=== PATIENT | female | born 1995 | race Caucasian/White ===

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

== ENCOUNTER 2017-02-18 10:14 | Emergency (ER) | payer OTHER ==
[2017-02-18 10:33] VITALS: BP 122/68; PULSE 70; TEMP 98.3; BMI 27.1
[2017-02-18 10:58] LABS: URINE APPEARANCE CLEAR; URINE BILIRUBIN NEGATIVE (NEGATIVE); URINE BLOOD 1+ (NEGATIVE); URINE COLOR YELLOW; URINE GLUCOSE (UA) NEGATIVE (NEGATIVE); URINE KETONE NEGATIVE (NEGATIVE); URINE NITRITE NEGATIVE (NEGATIVE); URINE PROTEIN NEGATIVE (NEGATIVE); URINE UROBILINOGEN NEGATIVE mg/dL (0.2-1.0)
[2017-02-18 10:59] LABS: HCG,QUALITATIVE URINE NEGATIVE; URINE LEUK ESTERASE 1+ (NEGATIVE)
[2017-02-18 11:11] LABS: EPI CELLS FEW /HPF (FEW); URINE BACTERIA RARE /hpf (NONE SEEN); URINE MUCUS RARE
--- NOTE | 2017-02-18 11:49 | PDOC ---
History of Present Illness - General Chief Complaint: Urinary Problem Stated Complaint: UTI Time Seen by Provider: 02/18/17 11:10 - History of Present Illness Initial Comments: 02/18/17 11:41 CHIEF COMPLAINT: urinary problem HISTORY OF PRESENT ILLNESS: 21 yo F with no significant PMH presents to [facility] with vaginal burning and itching x 1 week. Patient denies any back pain, abdominal pain, fever, chills, vomiting or diarrhea. She reports burning with urination and "some itching." She also reports white vaginal discharge that is unusual from her baseline. PAST MEDICAL HISTORY: Denies past medical history FAMILY HISTORY: Denies SOCIAL HISTORY: Denies tobacco, alcohol, illicit drug use. SURGICAL HISTORY: Denies ALLERGIES: No known drug allergies REVIEW OF SYSTEMS General/Constitutional: Denies fever or chills. HEENT: Denies change in vision. Denies ear pain or discharge. Denies sore throat. Cardiovascular: Denies chest pain or shortness of breath. Respiratory: Denies cough, wheezing, or hemoptysis. Gastrointestinal: Denies nausea, vomiting, diarrheag. Genitourinary: Vaginal burning, increased urination but only "a little bit comes out," and white non odorous discharge. Musculoskeletal: Denies joint or muscle swelling or pain. Denies neck or back pain. Skin and breasts: Denies rash or easy bruising. PHYSICAL EXAM General Appearance: Well-appearing, appropriately dressed. No apparent distress. HEENT: EOMI, PERRLA. No conjunctival pallor. No photophobia, scleral icterus. Respiratory/Chest: Lungs CTAB. Cardiovascular: RRR. S1, S2. Gastrointestinal/Abdominal: Normal bowel sounds. Abdomen soft, non-distended. No tenderness or rebound tenderness. No organomegaly, pulsatile mass, guarding , hernia, hepatomegaly, splenomegaly. Musculoskeletal/Extremities: Normal inspection. FROM of all extremities, normal capillary refill. Pelvis Stable. No CVA tenderness. No tenderness to extremities, pedal edema, swelling, erythema or deformity. Integumentary: Appropriate color, dry, warm. 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 Fully oriented, alert. Appropriate mood/affect. Motor strength 5/5. No appreciable EOM palsy, facial droop or sensory deficit. Past History - Past Medical History Allergies/Adverse Reactions: Allergies Allergy/AdvReac Type Severity Reaction Status Date / Time No Known Allergies Allergy Verified 02/18/17 10:30 Home Medications: Ambulatory Orders Levothyroxine [Synthroid -] 50 mcg PO DAILY 07/25/15 Nitrofurantoin Monohyd/M-Cryst [Macrobid -] 100 mg PO BID #14 capsule 02/18/17 Anemia: No Asthma: No Cancer: No Cardiac Disorders: No CVA: No COPD: No DVT: No Dementia: No Diabetes: No Dialysis: No GI Disorders: No Disorders: No HTN: No Hypercholesterolemia: No Kidney Stones: No Liver Disease: No Psychiatric Problems: Yes (ANXIETY.) Seizures: No Thyroid Disease: Yes (HYPO.) Lung CA: No - Surgical History Abdominal Surgery: No Appendectomy: No Cardiac Surgery: No Cholecystectomy: No Gastric Stapling: No GI Surgery: No Lung Surgery: No Neurologic Surgery: No - Reproductive History Cervical CA: No Dysfunctional Uterine Bleeding: No Ectopic : No Endometrial CA: No Polycystic Ovaries: No Tubal Ligation: No - Immunization History Immunization Up to Date: Yes - Suicide/Smoking/Psychosocial Hx Smoking Status: No Smoking History: Never smoked Have you smoked in the past 12 months: No Number of Cigarettes Smoked Daily: 0 Cigars Per Day: 0 Hx Alcohol Use: No Drug/Substance Use Hx: No Substance Use Type: None *Physical Exam - Vital Signs Last Vital Signs Temp Pulse Resp BP Pulse Ox 98.3 F 70 19 122/68 98 02/18/17 10:30 02/18/17 10:30 02/18/17 10:30 02/18/17 10:30 02/18/17 10:30 ED Treatment Course - ADDITIONAL ORDERS Additional order review: Laboratory Results 02/18/17 10:40 Urine Color Yellow Urine Appearance Clear Urine pH 5.0 Ur Specific [place] 1.027 Urine Protein Negative Urine Glucose (UA) Negative Urine Ketones Negative Urine Blood 1+ H Urine Nitrite Negative Urine Bilirubin Negative Urine Urobilinogen Negative Ur Leukocyte Esterase 1+ H Urine WBC (Auto) 7 Urine RBC (Auto) 8 Ur Epithelial Cells Few Urine Bacteria Rare Urine Mucus Rare Urine HCG, Qual Negative Medical Decision Making - Medical Decision Making 02/18/17 11:49 21 yo F with no significant PMH presents to [facility] with vaginal burning and itching x 1 week. -UA, UCx UA negative for nitrites, WBC 7. Will treat with fluconazole and macrobid. Advised patient to take medication as prescribed and follow up with PMD if symptoms persist. Advised patient of signs and symptoms for return to ED. Patient verbalized understanding and agrees to plan. *DC/Admit/Observation/Transfer Diagnosis at time of Disposition: Yeast infection UTI (urinary tract infection) Qualifiers: Urinary tract infection type: site unspecified Hematuria presence: without hematuria Qualified Code(s): N39.0 - Urinary tract infection, site not specified - Discharge Dispostion Disposition: HOME Condition at time of disposition: Stable Admit: No - Prescriptions Prescriptions: Nitrofurantoin Monohyd/M-Cryst [Macrobid -] 100 mg PO BID #14 capsule - Referrals Referrals: Lissette Escalante MD [Staff Physician] - - Patient Instructions Printed Discharge Instructions: DI for Urinary Tract Infection (UTI), DI for Vaginal Yeast Infection Additional Instructions: Please take medications as prescribed and complete the entire course of antibiotics, even if your symptoms have improved. If you develop any fever, chills, back pain, nausea, vomiting, diarrhea, or any new or worsening symptoms , please return to the ER immediately. - Post Discharge Activity
[2017-02-18] MEDS ORDERED: FLUCONAZOLE 150 MG TABLET PO ONE (11:51)
[2017-02-18] MEDS ORDERED: FLUCONAZOLE 100 MG TABLET (UD) ONE (11:56)
== END 2017-02-18 12:01 | disposition home or self-care (01) ==
LOC: JERFT 10:14
DX: B37.49 Other urogenital candidiasis (principal); N39.0 Urinary tract infection, site not specified
CPT/HCPCS: 81003; 81015; 84703; 87086; 99281-25

== ENCOUNTER 2017-03-21 07:45 | Emergency (ER) | payer OTHER ==
[2017-03-21 07:51] VITALS: BP 112/81; PULSE 90; TEMP 98.5; BMI 26.7
--- NOTE | 2017-03-21 08:14 | PDOC ---
History of Present Illness - General Chief Complaint: Sore Throat Stated Complaint: SORE THROAT/EAR PAIN Time Seen by Provider: 03/21/17 08:11 History Source: Patient Exam Limitations: No Limitations - History of Present Illness Initial Comments: CHIEF COMPLAINT: 21 y/o female c/o congestion, sore throat and earache this morning. HISTORY OF PRESENT ILLNESS: The patient denies fever, chills, n/v/d, runny nose , body aches, CAST, CP, SOB and all other symptoms. SHe is most concerned with being able to visit a new family baby today. Past History - Past Medical History Allergies/Adverse Reactions: Allergies Allergy/AdvReac Type Severity Reaction Status Date / Time No Known Allergies Allergy Verified 03/21/17 07:51 Home Medications: Ambulatory Orders Levothyroxine [Synthroid -] 50 mcg PO DAILY 07/25/15 Nitrofurantoin Monohyd/M-Cryst [Macrobid -] 100 mg PO BID #14 capsule 02/18/17 Anemia: No Asthma: No Cancer: No Cardiac Disorders: No CVA: No COPD: No DVT: No Dementia: No Diabetes: No Dialysis: No GI Disorders: No Disorders: No HTN: No Hypercholesterolemia: No Kidney Stones: No Liver Disease: No Psychiatric Problems: Yes (ANXIETY.) Seizures: No Thyroid Disease: Yes (HYPO.) Lung CA: No - Surgical History Abdominal Surgery: No Appendectomy: No Cardiac Surgery: No Cholecystectomy: No Gastric Stapling: No GI Surgery: No Lung Surgery: No Neurologic Surgery: No - Reproductive History Cervical CA: No Dysfunctional Uterine Bleeding: No Ectopic : No Endometrial CA: No Polycystic Ovaries: No Tubal Ligation: No - Immunization History Immunization Up to Date: Yes - Suicide/Smoking/Psychosocial Hx Smoking Status: No Smoking History: Never smoked Have you smoked in the past 12 months: No Number of Cigarettes Smoked Daily: 0 Cigars Per Day: 0 Hx Alcohol Use: No Drug/Substance Use Hx: No Substance Use Type: None Review of Systems - Review of Systems Able to Perform ROS?: Yes Constitutional: No: Chills, Diaphoresis, Fever HEENTM: Yes: Ear Pain (left), Nose Congestion, Throat Pain. No: Ear Discharge, Nose Pain, Throat Swelling, Difficulty Swallowing Respiratory: Yes: Cough (dry). No: Shortness of Breath, Wheezing, Productive cough, Hemoptysis Cardiac (ROS): No: Symptoms Reported ABD/GI: No: Symptoms Reported : No: Symptoms Reported Musculoskeletal: No: Symptoms Reported Neurological: No: Symptoms reported *Physical Exam - Vital Signs Last Vital Signs Temp Pulse Resp BP Pulse Ox 98.5 F 90 16 112/81 97 03/21/17 07:49 03/21/17 07:49 03/21/17 07:49 03/21/17 07:49 03/21/17 07:49 - Physical Exam Comments: well appearing female in NAD or obvious discomfort General Appearance: Yes: Nourished, Appropriately Dressed. No: Apparent Distress HEENT: positive: CAMILO, Normal Voice, TMs Normal, Pharynx Normal, Pharyngeal Erythema, Nasal Congestion, Other (dry cough). negative: Tonsillar Exudate, Tonsillar Erythema, Rhinorrhea Neck: negative: Lymphadenopathy (R), Lymphadenopathy (L) Respiratory/Chest: positive: Lungs Clear. negative: Rhonchi, Wheezing Cardiovascular: positive: Regular Rhythm, Regular Rate Medical Decision Making - Medical Decision Making A/P: 21 y/o female with common cold/pharyngitis. Provided supportive care instructions. Suggested she not visit a baby until she is 100% and return to the ER with any worsening or concerning symptoms. The patient verbalizes understanding of all instructions, has no further questions and is awaiting discharge. *DC/Admit/Observation/Transfer Diagnosis at time of Disposition: Common cold Pharyngitis Qualifiers: Pharyngitis/tonsillitis etiology: unspecified etiology Qualified Code(s): J02.9 - Acute pharyngitis, unspecified - Discharge Dispostion Disposition: HOME Condition at time of disposition: Good - Referrals - Patient Instructions Printed Discharge Instructions: DI for Viral Pharyngitis, DI for Common Cold Additional Instructions: Discharge Instructions: -Take tylenol or motrin for pain -Gargle with warm salt water -Eat cold/soft foods to help with sore throat -Take robitussin for cough -Drink plenty of fluids -Get lots of rest -Return to the ER with any worsening or concerning symptoms - Post Discharge Activity Forms/Work/School Notes: Back to School
== END 2017-03-21 08:44 | disposition home or self-care (01) ==
LOC: JERFT 07:45
DX: J02.9 Acute pharyngitis, unspecified (principal); J06.9 Acute upper respiratory infection, unspecified
CPT/HCPCS: 99281-25

== ENCOUNTER 2017-03-25 22:53 | Emergency (ER) | payer OTHER ==
[2017-03-25 23:56] VITALS: BP 148/83; PULSE 90; TEMP 98; BMI 26.7
--- NOTE | 2017-03-26 01:18 | PDOC ---
History of Present Illness - General Chief Complaint: Cold Symptoms Stated Complaint: COUGHING Time Seen by Provider: 03/26/17 01:08 History Source: Patient Exam Limitations: No Limitations - History of Present Illness Initial Comments: 03/26/17 01:19 21-year-old female with a history of hypothyroidism presents to the emergency department complaining of worsening sore throat which is been going on for approximately one week with subjective fever and chills but denies nausea/ vomiting. Patient also admits to nasal congestion, rhinorrhea but denies earaches, neck pain/stiffness, back pains, chest pain, shortness of breath, abdominal discomfort. Timing/Duration: reports: week Past History - Past Medical History Allergies/Adverse Reactions: Allergies Allergy/AdvReac Type Severity Reaction Status Date / Time No Known Allergies Allergy Verified 03/25/17 23:56 Home Medications: Ambulatory Orders Levothyroxine [Synthroid -] 50 mcg PO DAILY 07/25/15 Anemia: No Asthma: No Cancer: No Cardiac Disorders: No CVA: No COPD: No DVT: No Dementia: No Diabetes: No Dialysis: No GI Disorders: No Disorders: No HTN: No Hypercholesterolemia: No Kidney Stones: No Liver Disease: No Psychiatric Problems: Yes (ANXIETY.) Seizures: No Thyroid Disease: Yes (HYPO.) Lung CA: No - Surgical History Abdominal Surgery: No Appendectomy: No Cardiac Surgery: No Cholecystectomy: No Gastric Stapling: No GI Surgery: No Lung Surgery: No Neurologic Surgery: No - Reproductive History Cervical CA: No Dysfunctional Uterine Bleeding: No Ectopic : No Endometrial CA: No Polycystic Ovaries: No Tubal Ligation: No - Immunization History Immunization Up to Date: Yes - Suicide/Smoking/Psychosocial Hx Smoking Status: No Smoking History: Never smoked Have you smoked in the past 12 months: No Number of Cigarettes Smoked Daily: 0 Cigars Per Day: 0 Information on smoking cessation initiated: No Hx Alcohol Use: No Drug/Substance Use Hx: No Substance Use Type: None Review of Systems - Review of Systems Able to Perform ROS?: Yes Comments:: 03/26/17 01:19 CONSTITUTIONAL: Absent: fever, chills, diaphoresis, generalized weakness, malaise, loss of appetite HEENT: +rhinorrhea, nasal congestion, throat pain Absent: throat swelling, difficulty swallowing, mouth swelling, ear pain, eye pain, visual Changes CARDIOVASCULAR: Absent: chest pain, loss of consciousness, palpitations, irregular heart rate, peripheral edema RESPIRATORY: Absent: cough, shortness of breath, dyspnea with exertion, orthopnea, wheezing, stridor, hemoptysis GASTROINTESTINAL: Absent: abdominal pain, abdominal distension, nausea, vomiting, diarrhea, constipation, melena, hematochezia GENITOURINARY: Absent: dysuria, frequency, urgency, hesitancy, hematuria, flank pain, genital pain MUSCULOSKELETAL: Absent: myalgia, arthralgia, joint swelling SKIN: Absent: rash, itching, pallor Is the patient limited Maltese proficient: No *Physical Exam - Vital Signs Last Vital Signs Temp Pulse Resp BP Pulse Ox 98.0 F 90 18 148/83 97 03/25/17 23:53 03/25/17 23:53 03/25/17 23:53 03/25/17 23:53 03/25/17 23:53 - Physical Exam Comments: 03/26/17 01:20 GENERAL: Well developed, well nourished. Awake and alert. No acute distress. HEENT: Posterior pharynx +erythema/+exudates Normocephalic, atraumatic. PERRLA, EOMI. No conjunctival pallor. Sclera are non- icteric. Moist mucous membranes. Oropharynx is clear. NECK: Supple. Full ROM. No JVD. Carotid pulses 2+ and symmetric, without bruits. No thyromegaly. No lymphadenopathy. CARDIOVASCULAR: Regular rate and rhythm. No murmurs, rubs, or gallops. Distal pulses are 2+ and symmetric. PULMONARY: No evidence of respiratory distress. Lungs clear to auscultation bilaterally. No wheezing, rales or rhonchi. ABDOMINAL: Soft. Non-tender. Non-distended. No rebound or guarding. No organomegaly. Normoactive bowel sounds. MUSCULOSKELETAL Normal range of motion at all joints. No bony deformities or tenderness. No CVA tenderness. EXTREMITIES: No cyanosis. No clubbing. No edema. No calf tenderness. SKIN: Warm and dry. Normal capillary refill. No rashes. No jaundice. *DC/Admit/Observation/Transfer Diagnosis at time of Disposition: Pharyngitis Qualifiers: Pharyngitis/tonsillitis etiology: unspecified etiology Qualified Code(s): J02.9 - Acute pharyngitis, unspecified - Discharge Dispostion Disposition: HOME Condition at time of disposition: Stable Admit: No - Referrals Referrals: Stiven Garcia MD [Staff Physician] - - Patient Instructions Printed Discharge Instructions: Viral Pharyngitis Additional Instructions: Increase fluids Take Tylenol alternating with Motrin every 6 hours as needed for pain Follow-up with the ENT physician Return back to the emergency department for severe/persistent or worsening symptoms - Post Discharge Activity
[2017-03-26] MEDS ORDERED: AMOXICILLIN 500 MG CAPSULE (FP) PO ONE (01:21)
[2017-03-26] MEDS ORDERED: AMOXICILLIN 250 MG CAPSULE ONE (01:25)
== END 2017-03-26 01:28 | disposition home or self-care (01) ==
LOC: JERFT 22:53
DX: J02.9 Acute pharyngitis, unspecified (principal); E03.9 Hypothyroidism, unspecified; F41.9 Anxiety disorder, unspecified
CPT/HCPCS: 99281-25

== ENCOUNTER 2017-08-23 18:28 | Emergency (ER) | payer OTHER ==
--- NOTE | 2017-08-23 18:55 | PDOC ---
Rapid Medical Evaluation Time Seen by Provider: 08/23/17 18:53 Medical Evaluation: Allergies Allergy/AdvReac Type Severity Reaction Status Date / Time No Known Allergies Allergy Verified 03/25/17 23:56 08/23/17 18:53 I have performed a brief in-person evaluation of this patient. The patient presents with a chief complaint of:B/l ear pain, L>R. No pmhx Pertinent physical exam findings:defer to FT provider I have ordered the following:nothing The patient will proceed to the ED for further evaluation. Discharge Disposition - Diagnosis Ear pain Qualifiers: Laterality: bilateral Qualified Code(s): H92.03 - Otalgia, bilateral - Referrals - Patient Instructions - Post Discharge Activity
[2017-08-23 18:56] VITALS: BP 133/68; PULSE 83; TEMP 98.6; BMI 27.3
--- NOTE | 2017-08-23 19:37 | PDOC ---
History of Present Illness - General Chief Complaint: Ear Problem Stated Complaint: EAR PAIN Time Seen by Provider: 08/23/17 18:53 History Source: Patient Exam Limitations: No Limitations - History of Present Illness Initial Comments: 08/23/17 19:32 c/o woke up with fullness to both ear and sinus congestion. Pt was swimming often in the pool last week. no fever no sore throat Timing/Duration: 24 hours Severity: mild Past History - Past Medical History Allergies/Adverse Reactions: Allergies Allergy/AdvReac Type Severity Reaction Status Date / Time No Known Allergies Allergy Verified 08/23/17 18:53 Home Medications: Ambulatory Orders Levothyroxine [Synthroid -] 75 mcg PO DAILY 07/25/15 Norgestimate-Ethinyl Estradiol [Estarylla 0.25-0.035 mg Tablet] 1 each PO DAILY 08/23/17 Prednisolone 1% Ophthalmic [Pred Forte 1% -] 2 drop BID #1 bottle 08/23/17 Anemia: No Asthma: No Cancer: No Cardiac Disorders: No CVA: No COPD: No DVT: No Dementia: No Diabetes: No Dialysis: No GI Disorders: No Disorders: No HTN: No Hypercholesterolemia: No Kidney Stones: No Liver Disease: No Psychiatric Problems: Yes (ANXIETY.) Seizures: No Thyroid Disease: Yes (HYPO.) Lung CA: No - Surgical History Abdominal Surgery: No Appendectomy: No Cardiac Surgery: No Cholecystectomy: No Gastric Stapling: No GI Surgery: No Lung Surgery: No Neurologic Surgery: No - Reproductive History Cervical CA: No Dysfunctional Uterine Bleeding: No Ectopic : No Endometrial CA: No Polycystic Ovaries: No Tubal Ligation: No - Immunization History Immunization Up to Date: Yes - Suicide/Smoking/Psychosocial Hx Smoking Status: No Smoking History: Never smoked Have you smoked in the past 12 months: No Number of Cigarettes Smoked Daily: 0 Cigars Per Day: 0 Hx Alcohol Use: No Drug/Substance Use Hx: No Substance Use Type: None Review of Systems - Review of Systems Able to Perform ROS?: Yes Is the patient limited [place] proficient: No Constitutional: No: Symptoms Reported HEENTM: Yes: Symptoms Reported *Physical Exam - Vital Signs Last Vital Signs Temp Pulse Resp BP Pulse Ox 98.6 F 83 19 133/68 99 08/23/17 18:54 08/23/17 18:54 08/23/17 18:54 08/23/17 18:54 08/23/17 18:54 - Physical Exam General Appearance: Yes: Nourished, Appropriately Dressed HEENT: positive: EOMI, CAMILO, Nasal Congestion, TM Erythema (left ear with narrowing of canal ), Other (right ear clear ) Neck: positive: Supple Respiratory/Chest: positive: Lungs Clear, Normal Breath Sounds Cardiovascular: positive: Regular Rhythm, Regular Rate Musculoskeletal: positive: Normal Inspection Extremity: positive: Normal Capillary Refill, Normal Inspection, Normal Range of Motion Integumentary: positive: Normal Color, Dry, Warm Neurologic: positive: medical technologist clinical II-XII NML intact, Fully Oriented, Alert, Normal Mood/ Affect, Normal Response, Motor Strength 06/15 Medical Decision Making - Medical Decision Making 08/23/17 19:33 cc: ear fullness sinus congestion afebrile non toxic well appearing *DC/Admit/Observation/Transfer Diagnosis at time of Disposition: Ear pain Qualifiers: Laterality: bilateral Qualified Code(s): H92.03 - Otalgia, bilateral - Discharge Dispostion Disposition: HOME Condition at time of disposition: Good - Prescriptions Prescriptions: Prednisolone 1% Ophthalmic [Pred Forte 1% -] 2 drop BID #1 bottle - Referrals Referrals: Stiven Garcia MD [Staff Physician] - - Patient Instructions Additional Instructions: follow with ENT for any worsening symptoms use the drops as prescribed you can also take over the counter Sudafed for congestion and ear fullness as directed on the package - Post Discharge Activity
== END 2017-08-23 19:41 | disposition home or self-care (01) ==
LOC: JERFT 18:28
DX: H92.03 Otalgia, bilateral (principal); F41.9 Anxiety disorder, unspecified; E03.9 Hypothyroidism, unspecified
CPT/HCPCS: 99281-25

== ENCOUNTER 2017-09-29 23:18 | Emergency (ER) | payer OTHER ==
[2017-09-29 23:25] VITALS: BP 114/68; PULSE 82; TEMP 98.2; BMI 27.9
--- NOTE | 2017-09-30 00:10 | PDOC ---
History of Present Illness - General Chief Complaint: Redness To Affected Area Stated Complaint: SWELLING TO EAR History Source: Patient Exam Limitations: No Limitations - History of Present Illness Initial Comments: 09/30/17 00:03 Patient is a 21 year old female with h/o hypothyroidism on Synthroid c/o swelling to her right tragus after applying some saline water. States she had a piercing to the tragus 2 weeks ago and was doing fine until she used a Dr. Martinez saline solution on it today and it became swollen. States no pain, discharge, redness. She put ice on the area and now swelling coming down. PMD: does not remember name PMHX: neg PSOCHX: neg etoh, durg, cig ALL: NKDA GENERAL/CONSTITUTIONAL: [No fever or chills. No weakness. No weight change.] HEAD, EYES, EARS, NOSE AND THROAT: [No change in vision. No ear pain or discharge. No sore throat.] CARDIOVASCULAR: [No chest pain or shortness of breath.] RESPIRATORY: [No cough, wheezing, or hemoptysis.] GASTROINTESTINAL: [No nausea, vomiting, diarrhea or constipation. No rectal bleeding.] GENITOURINARY: [No dysuria, frequency, or change in urination.] MUSCULOSKELETAL: [No joint or muscle swelling or pain. No neck or back pain.] SKIN AND BREASTS: [No rash or easy bruising.] NEUROLOGIC: [No headache, vertigo, loss of consciousness, or loss of sensation.] PSYCHIATRIC: [No depression or anxiety.] ENDOCRINE: [No increased thirst. No abnormal weight change.] HEMATOLOGIC/LYMPHATIC: [No anemia, easy bleeding, or history of blood clots.] ALLERGIC/IMMUNOLOGIC: [No hives or skin allergy. No latex allergy.] GENERAL: [The patient is awake, alert, and fully oriented, in no acute distress. ] HEAD: [Normal with no signs of trauma.] EYES: [Pupils equal, round and reactive to light, extraocular movements intact, sclera anicteric, conjunctiva clear.] ENT: [Ears normal, nares patent, oropharynx clear without exudates. Moist mucous membranes.] NECK: [Normal range of motion, supple without lymphadenopathy, JVD, or masses.] LUNGS: [Breath sounds equal, clear to auscultation bilaterally. No wheezes, and no crackles.] HEART: [Regular rate and rhythm, normal S1 and S2 without murmur, rub.] ABDOMEN: [Soft, nontender, normoactive bowel sounds. No guarding, no rebound. No masses.] EXTREMITIES: [Normal range of motion, no edema. No clubbing or cyanosis. No cords, erythema, or tenderness.] NEUROLOGICAL: [Cranial nerves II through XII grossly intact. Normal speech, normal gait.] PSYCH: [Normal mood, normal affect.] SKIN: [Warm, Dry, normal turgor, no rashes or lesions noted, right tragus with earring, no erythema, nontender, no discharge, mild swelling. ] Past History - Past Medical History Allergies/Adverse Reactions: Allergies Allergy/AdvReac Type Severity Reaction Status Date / Time No Known Allergies Allergy Verified 09/29/17 23:25 Home Medications: Ambulatory Orders Levothyroxine [Synthroid -] 75 mcg PO DAILY 07/25/15 Norgestimate-Ethinyl Estradiol [Estarylla 0.25-0.035 mg Tablet] 1 each PO DAILY 08/23/17 Prednisolone 1% Ophthalmic [Pred Forte 1% -] 2 drop BID #1 bottle 08/23/17 Anemia: No Asthma: No Cancer: No Cardiac Disorders: No CVA: No COPD: No DVT: No Dementia: No Diabetes: No Dialysis: No GI Disorders: No Disorders: No HTN: No Hypercholesterolemia: No Kidney Stones: No Liver Disease: No Psychiatric Problems: Yes (ANXIETY.) Seizures: No Thyroid Disease: Yes (HYPO.) Lung CA: No - Surgical History Abdominal Surgery: No Appendectomy: No Cardiac Surgery: No Cholecystectomy: No Gastric Stapling: No GI Surgery: No Lung Surgery: No Neurologic Surgery: No - Reproductive History Cervical CA: No Dysfunctional Uterine Bleeding: No Ectopic : No Endometrial CA: No Polycystic Ovaries: No Tubal Ligation: No - Immunization History Immunization Up to Date: Yes - Suicide/Smoking/Psychosocial Hx Smoking Status: No Smoking History: Never smoked Have you smoked in the past 12 months: No Number of Cigarettes Smoked Daily: 0 Cigars Per Day: 0 Information on smoking cessation initiated: No Hx Alcohol Use: No Drug/Substance Use Hx: No Substance Use Type: None *Physical Exam - Vital Signs Last Vital Signs Temp Pulse Resp BP Pulse Ox 98.2 F 82 116 H 114/68 100 09/29/17 23:23 08/19/18 23:23 09/29/17 23:23 09/29/17 23:23 09/29/17 23:23 Medical Decision Making - Medical Decision Making 09/30/17 00:03 Patient is a 21 year old female with h/o hypothyroidism on Synthroid c/o swelling to her right tragus after applying some saline water. discharge with inst to watch for infection. I discussed the physical exam findings, ancillary test results and final diagnoses with the patient. I answered all of the patient's questions. The patient was satisfied with the care received and felt comfortable with the discharge plan and treatment plan. The Patient agrees to follow up with the primary care physician within 24-72 hours. *DC/Admit/Observation/Transfer Diagnosis at time of Disposition: Swelling - Discharge Dispostion Disposition: HOME Condition at time of disposition: Stable - Referrals - Patient Instructions Printed Discharge Instructions: DI for Contusion Additional Instructions: Your Discharge Instructions: You must call primary care physician within 24 hours to arrange follow-up. Return to the Emergency Department with any new, persistent or worsening symptoms, for fever, chills, SOB, dizziness or any other concerning changes that may occur. if the swelling continues, and associate and discharge you must rem the earing immediately. - Post Discharge Activity
--- NOTE | 2017-09-30 00:38 | PDOC ---
*Physical Exam - Vital Signs Last Vital Signs Temp Pulse Resp BP Pulse Ox 98.2 F 82 116 H 114/68 100 09/29/17 23:23 09/29/17 23:23 09/29/17 23:23 09/29/17 23:23 09/29/17 23:23 Medical Decision Making - Medical Decision Making 09/30/17 00:38 Case discussed with JALEN Shore. Plan as per JALEN *DC/Admit/Observation/Transfer Diagnosis at time of Disposition: Swelling - Discharge Dispostion Disposition: HOME - Referrals - Patient Instructions Printed Discharge Instructions: DI for Contusion Additional Instructions: Your Discharge Instructions: You must call primary care physician within 24 hours to arrange follow-up. Return to the Emergency Department with any new, persistent or worsening symptoms, for fever, chills, SOB, dizziness or any other concerning changes that may occur. if the swelling continues, and associate and discharge you must rem the earing immediately. - Post Discharge Activity
== END 2017-09-30 00:39 | disposition home or self-care (01) ==
LOC: JER 23:18
DX: H93.8X1 Other specified disorders of right ear (principal); E03.9 Hypothyroidism, unspecified; F41.9 Anxiety disorder, unspecified
CPT/HCPCS: 99281-25

== ENCOUNTER 2018-11-07 04:59 | Emergency (ER) | payer OTHER ==
[2018-11-07 05:10] VITALS: BP 110/65; PULSE 86; TEMP 98.3; BMI 26.7
[2018-11-07] MEDS ORDERED: FLUORESCEIN NA 1 EA STRIP OS ONE (05:33)
[2018-11-07] MEDS ORDERED: TETRACAINE 0.5% OPHTH SOLN 2 ML BOTTLE OS ONE (05:33)
[2018-11-07] MEDS ORDERED: TETRACAINE 0.5% OPHTH SOLN 2 ML BOTTLE ONE (05:36)
[2018-11-07] MEDS ORDERED: FLUORESCEIN NA 1 EA STRIP ONE (05:36)
--- NOTE | 2018-11-07 05:50 | PDOC ---
History of Present Illness - General Chief Complaint: Eye Problem Stated Complaint: LEFT EYE SWELLING Time Seen by Provider: 11/07/18 05:03 History Source: Patient Exam Limitations: No Limitations - History of Present Illness Initial Comments: 11/07/18 05:48 This is a 23 year old female with PMH significant for hypothyroidism. She presented to the ER with complaints of left eye swelling (no swelling noted on examination) and irritation for the past 1 hour. She went to sleep around 1AM and woke up at 4AM to use the bathroom. She noticed her eye was swollen, and subsequently developed irritation, lacrimation. She states that she had eyelash extensions placed on the 08 of October. She has never had eyelash extensions before. She has myopia in her left eye, and has prescription glasses as well as contact lenses, which she uses occasionally. She is not currently wearing contact lenses. She denies any visual changes, fever, chills, headaches, nausea , or vomiting. She also denies any recent illnesses, sick contacts, recent travel, or changes in her medication. Past History - Travel Traveled outside of the country in the last 30 days: Yes Close contact w/someone who was outside of country & ill: No - Past Medical History Allergies/Adverse Reactions: Allergies Allergy/AdvReac Type Severity Reaction Status Date / Time No Known Allergies Allergy Verified 11/07/18 05:08 Home Medications: Ambulatory Orders Levothyroxine [Synthroid -] 75 mcg PO DAILY 07/25/15 Norgestimate-Ethinyl Estradiol [Estarylla 0.25-0.035 mg Tablet] 1 each PO DAILY 08/23/17 Prednisolone 1% Ophthalmic [Pred Forte 1% -] 2 drop BID #1 bottle 08/23/17 Anemia: No Asthma: No Cancer: No Cardiac Disorders: No CVA: No COPD: No DVT: No Dementia: No Diabetes: No Dialysis: No GI Disorders: No Disorders: No HTN: No Hypercholesterolemia: No Kidney Stones: No Liver Disease: No Psychiatric Problems: Yes (ANXIETY.) Seizures: No Thyroid Disease: Yes (HYPO.) Lung CA: No - Surgical History Abdominal Surgery: No Appendectomy: No Cardiac Surgery: No Cholecystectomy: No Gastric Stapling: No GI Surgery: No Lung Surgery: No Neurologic Surgery: No - Reproductive History Cervical CA: No Dysfunctional Uterine Bleeding: No Ectopic : No Endometrial CA: No Polycystic Ovaries: No Tubal Ligation: No - Immunization History Immunization Up to Date: Yes - Psycho Social/Smoking Cessation Hx Smoking Status: No Smoking History: Never smoked Have you smoked in the past 12 months: No Number of Cigarettes Smoked Daily: 0 Cigars Per Day: 0 Information on smoking cessation initiated: No Hx Alcohol Use: No Drug/Substance Use Hx: No Substance Use Type: None Review of Systems - Review of Systems Constitutional: No: Symptoms Reported, See HPI, Chills, Diaphoresis, Fever, Loss of Appetite, Malaise, Night Sweats, Weakness, Weight Stable, Unintentional Wgt. Loss, Unexplained wgt Loss, Other HEENTM: Yes: Tearing. No: Symptoms Reported, See HPI, Eye Pain, Blurred Vision , Recent change in vision, Double Vision, Cataracts, Ear Pain, Ocular Prothesis , Ear Discharge, Nose Pain, Nose Congestion, Tinnitus, Nose Bleeding, Hearing Loss, Throat Pain, Throat Swelling, Mouth Pain, Dental Problems, Difficulty Swallowing, Mouth Swelling, Other Respiratory: No: Symptoms reported, See HPI, Cough, Orthopnea, Shortness of Breath, SOB with Exertion, SOB at Rest, Stridor, Wheezing, Productive cough, Hemoptysis, Other Cardiac (ROS): No: Symptoms Reported, See HPI, Chest Pain, Edema, Irregular Heart Rate, Lightheadedness, Palpitations, Syncope, Chest Tightness, Other ABD/GI: No: Symptoms Reported, See HPI, Abdominal Distended, Abd. Pain w/ defecation, Blood Streaked Bowels, Constipated, Diarrhea, Difficulty Swallowing , Nausea, Poor Appetite, Poor Fluid Intake, Rectal Bleeding, Vomiting, Indigestion, Abdominal cramping, Tarry Stools, Other : No: Symptoms Reported, See HPI, Burning, Dysuria, Discharge, Frequency, Flank Pain, Hematuria, Incontinence, Pain, Urgency, Testicular Mass, Testicular Swelling, Lesions, Testicular Pain, Other Musculoskeletal: No: Symptoms Reported, See HPI, Back Pain, Gout, Joint Pain, Joint Swelling, Muscle Pain, Muscle Weakness, Neck Pain, Joint Stiffness, Other Integumentary: No: Symptoms Reported, See HPI, Bruising, Change in Color, Change in Hair/Nails, Dryness, Erythema, Flushing, Lesions, Lumps, Pallor, Pruritus, Rash, Sweating, Other Neurological: No: Symptoms reported, See HPI, Headache, Numbness, Paresthesia, Pre-Existing Deficit, Seizure, Tingling, Tremors, Weakness, Unsteady Gait, Ataxia, Dizziness, Other Psychiatric: No: Anxiety, Depression, Frequent Crying, Stressors, Sleep Pattern Change, Emotional Problems, Mood Swings, Change in Appetite, Other Endocrine: No: Symptoms Reported, See HPI, Excessive Sweating, Flushing, Intolerance to Cold, Intolerance to Heat, Increased Hunger, Increased Thirst, Increased Urine, Unexplained Weight Gain, Unexplained Weight Loss, Change in Weight, Other Hematologic/Lymphatic: No: Symptoms Reported, See HPI, Anemia, Blood Clots, Easy Bleeding, Easy Bruising, Bleeding Diathesis, Lymph Node Abnormalities, Swollen Glands, Other *Physical Exam - Vital Signs Last Vital Signs Temp Pulse Resp BP Pulse Ox 98.3 F 86 20 110/65 98 11/07/18 05:08 11/07/18 05:08 11/07/18 05:08 11/07/18 05:08 11/07/18 05:08 - Physical Exam Comments: 11/07/18 06:10 Eye exam: CAMILO, EOM intact, mild scleral irritation noted in the emdial aspect of left eye. On examination with fluorescent dye, no abrasions noted. Fundoscopic examination normal. General Appearance: Yes: Appropriately Dressed. No: Nourished, Apparent Distress, Disheveled, Mild Distress, Moderate Distress, Severe Distress, Alcohol on Breath, Intoxicated, Cachetic, Obese, Thin, Other HEENT: negative: EOMI, CAMILO, Normal ENT Inspection, Normal Voice, Symmetrical, TMs Normal, Pharynx Normal, Pale Conjunctivae, Photophobia, Scleral Icterus (R) , Scleral Icterus (L), Muffled/Hoarse voice, Pharyngeal Erythema, Tonsillar Exudate, Tonsillar Erythema, Nasal Congestion, Rhinorrhea, Sinus Tenderness, Orbits, Hearing Decreased, Hearing Grossly Normal, TM Bulging, TM Dull, TM Erythema, Lesions, [place], Excessive drooling, Thrush, Other Neck: negative: Tender, Trachea midline, Normal Thyroid, Rigid, Supple, Carotid bruit, Decreased range of motion, Stridor, Lymphadenopathy (R), Lymphadenopathy (L), Rigidity, Tender lateral, Tender midline, Thyromegaly, Other Respiratory/Chest: negative: Chest Tender, Lungs Clear, Normal Breath Sounds, Respiratory Distress, Accessory Muscle Use, Labored Respiration, Rapid RR, Decreased Breath Sounds, Paradoxal Breathing, Crackles, Rales, Rhonchi, Stridor , Wheezing, Hyperresonant, Dullness, Plerual Rub, Other Cardiovascular: negative: Regular Rhythm, Regular Rate, S1, S2, Edema, JVD, Murmur, Bradycardia, Tachycardia, Diastolic Murmur, Systolic Murmur, Gallop/S3, Gallop/S4, Irregularly Irregular, Irregular, Other Female Pelvic Exam: negative: normal external exam, cervical os closed, normal adnexa, normal size ovaries, CMT, discharge, lesions, Bartholin mass, Scalene Gland, adnexal tenderness, uterus, Urethra, vaginal bleeding, other Gastrointestinal/Abdominal: negative: Normal Bowel Sounds, Tender, Flat, Soft, Organomegaly, Pulsatile Mass, Increased Bowel Sounds, Decreased BS, Protuberent , Distended, Guarding, Rebound, Tenderness, Hernia, Mass, Hepatomegaly, Spleenomegaly, Other Rectal Exam: negative: heme negative stool, normal exam, NL Prostate, normal rectal tone, deferred, melena, decreased tone, heme positive stool, hemorrhoids , other Lymphatic: negative: Adenopathy, Tenderness, Other Musculoskeletal: negative: Normal Inspection, CVA Tenderness, CVA Tenderness (R) , CVA Tenderness (L), Decreased Range of Motion, Muscle Spasm, Vertebral Tenderness, Other Integumentary: negative: Normal Color, Dry, Warm, Cyanotic, Erythema, Jaundice, Mottled, Pale, Cold, Clammy, Diaphoresis, Moist, Hives, Petechiae, Rash, Swelling, Ecchymosis, Bruising, Other Neurologic: negative: community outreach advocate II-XII NML intact, Fully Oriented, Alert, Normal Mood/ Affect, Normal Response, Motor Strength 5/5, Abnormal Cranial NS, Respond to painful stimul, Responsive, EOM Palsy, Facial Droop, Numbness, Sensory Deficit, Finger to Nose, Confused, Disoriented, Depressed Affect, Babinski, Other ED Treatment Course - Medications Given in the ED: ED Medications Discontinued Medications Generic Name Dose Route Start Last Admin Trade Name Freq PRN Reason Stop Dose Admin Fluorescein Sodium 1 ea 11/07/18 05:33 11/07/18 05:45 Fluorets - OS 11/07/18 05:34 1 ea ONCE ONE Administration Tetracaine HCl 1 drop 11/07/18 05:33 11/07/18 05:46 Pontocaine OS 11/07/18 05:34 1 drop ONCE ONE Administration Medical Decision Making - Medical Decision Making 11/07/18 06:12 - Examination with fluorescent dye showed no abrasions - Patient advised to have eyelash extensions removed and to avoid eye products for the next week - Discharged after educating about how to avoid occular foreign objects. Discharge - Discharge Information Problems reviewed: Yes Clinical Impression/Diagnosis: Itch of eye, left Condition: Guarded Disposition: HOME - Admission No - Follow up/Referral - Patient Discharge Instructions Patient Printed Discharge Instructions: How to Get a Foreign Body Out of Your Eye Additional Instructions: You presented to the ER with complaints of swelling and irritation of the left eye. On examination, we did not notice any swelling, and some mild redness of the left eye. We placed a dye in your eye to check for scratches, which we did not find. The irritation is most likely due to some debris entering the eye, which does not seem to be present anymore. We recommend that you have your eyelash extensions removed, and avoid applying products to the eyelashes (such as mascara) for a week, as these may be a possible source of irritation. Since we did not find any abnormalities requiring further treatment, you are now being discharged. Please follow up with you primary care physician within one week. Please return to the ER if you experience continued irritation in the eye, visual changes, excessive blurry vision, headaches, nausea, vomiting, and/or changes in the appearance of your eye. - Post Discharge Activity
--- NOTE | 2018-11-07 05:51 | PDOC ---
Attending Attestation - Resident Resident Name: FrankShiloh salvadord - ED Attending Attestation I have performed the following: I have examined & evaluated the patient, The case was reviewed & discussed with the resident, I agree w/resident's findings & plan, Exceptions are as noted - HPI HPI: 11/07/18 06:10 23F pmh hypothyroidism c/o L eye swelling. She woke up 1 hour prior to evaluation to use the bathroom and noted irritation of her L eye. Denies trauma but states that she has had eyelash extensions for about a month. No contact lenses. - Physicial Exam PE: 11/07/18 06:12 NAD, AOx3 No visible swelling of eye, no conjunctival injection, no proptosis PERRL, EOMI, no pain with eye movement No flourescein uptake - Medical Decision Making 11/07/18 06:14 Likely foreign body irritation of eye, no ulcers, abrasions dc
== END 2018-11-07 06:04 | disposition home or self-care (01) ==
LOC: JER 04:59
DX: H57.89 Other specified disorders of eye and adnexa (principal); E03.9 Hypothyroidism, unspecified; F41.9 Anxiety disorder, unspecified
CPT/HCPCS: 99281-25

== ENCOUNTER 2019-02-05 19:17 | Emergency (ER) | payer OTHER ==
--- NOTE | 2019-02-05 19:29 | PDOC ---
Rapid Medical Evaluation Time Seen by Provider: 02/05/19 19:26 Medical Evaluation: Allergies Allergy/AdvReac Type Severity Reaction Status Date / Time No Known Allergies Allergy Verified 11/07/18 05:08 02/05/19 19:26 I have performed a brief in-person evaluation of this patient. The patient presents with a chief complaint of: fever sore throat Pertinent physical exam findings: febrile I have ordered the following:motrin , flu swab, strep The patient will proceed to the ED for further evaluation. Discharge Disposition - Diagnosis Pharyngitis - Discharge Dispostion Disposition: HOME Condition at time of disposition: Stable - Prescriptions Prescriptions: Amoxicillin Suspension - 6.5 ml PO BID #100 ml Ibuprofen Oral Suspension [Motrin Oral Suspension -] 600 mg PO Q6H #400 ml Ondansetron [Zofran Odt -] 4 mg SL TID #10 od.tablet - Referrals Referrals: Moisés Apodaca MD [Staff Physician] - - Patient Instructions Printed Discharge Instructions: DI for Strep Throat Additional Instructions: You have strep throat. This is a bacterial infection. Please take the amoxicillin 500 mg twice a day for one week. Please finish the prescription even if you feel better. You may take Motrin 600 mg every 6 hours as needed for pain or fever. You may take Zofran every 8 hours as needed for nausea or vomiting. Warm water gargles and cough drops and just may also help her symptoms. Please throw way your toothbrush 3 days into treatment to prevent reinfection. Please follow up with your primary care doctor next week. Return to emergency department if you have worsening pain, difficulty swallowing , changes in your voice, lightheadedness, dizziness, or any changes in your symptoms. - Post Discharge Activity Work/School Note: Back to Work
[2019-02-05 19:34] VITALS: BP 124/79; PULSE 120; TEMP 100.3; BMI 26.9
--- NOTE | 2019-02-05 22:01 | PDOC ---
History of Present Illness - General Chief Complaint: Sore Throat Stated Complaint: FEVER/VOMITTING/NAUSEA/THROAT PAIN Time Seen by Provider: 02/05/19 19:26 History Source: Patient Exam Limitations: No Limitations Past History - Travel Traveled outside of the country in the last 30 days: No Close contact w/someone who was outside of country & ill: No - Past Medical History Allergies/Adverse Reactions: Allergies Allergy/AdvReac Type Severity Reaction Status Date / Time No Known Allergies Allergy Verified 02/05/19 19:34 Home Medications: Ambulatory Orders Levothyroxine [Synthroid -] 75 mcg PO DAILY 07/25/15 Norgestimate-Ethinyl Estradiol [Estarylla 0.25-0.035 mg Tablet] 1 each PO DAILY 08/23/17 Prednisolone 1% Ophthalmic [Pred Forte 1% -] 2 drop BID #1 bottle 08/23/17 Amoxicillin Suspension - 6.5 ml PO BID #100 ml 02/05/19 Ibuprofen Oral Suspension [Motrin Oral Suspension -] 600 mg PO Q6H #400 ml 02/05 Ondansetron [Zofran Odt -] 4 mg SL TID #10 od.tablet 02/05/19 Anemia: No Asthma: No Cancer: No Cardiac Disorders: No CVA: No COPD: No DVT: No Dementia: No Diabetes: No Dialysis: No GI Disorders: No Disorders: No HTN: No Hypercholesterolemia: No Kidney Stones: No Liver Disease: No Psychiatric Problems: Yes (ANXIETY.) Seizures: No Thyroid Disease: Yes (HYPO.) Lung CA: No - Surgical History Abdominal Surgery: No Appendectomy: No Cardiac Surgery: No Cholecystectomy: No Gastric Stapling: No GI Surgery: No Lung Surgery: No Neurologic Surgery: No - Reproductive History Cervical CA: No Dysfunctional Uterine Bleeding: No Ectopic : No Endometrial CA: No Polycystic Ovaries: No Tubal Ligation: No - Immunization History Immunization Up to Date: Yes - Psycho Social/Smoking Cessation Hx Smoking Status: No Smoking History: Never smoked Have you smoked in the past 12 months: No Number of Cigarettes Smoked Daily: 0 Cigars Per Day: 0 Information on smoking cessation initiated: No Hx Alcohol Use: No Drug/Substance Use Hx: No Substance Use Type: None Review of Systems - Review of Systems Able to Perform ROS?: Yes Comments:: 02/05/19 22:19 CONSTITUTIONAL: Present: Fever, chills, body aches Absent: diaphoresis, generalized weakness, malaise, loss of appetite HEENT: Present: rhinorrhea, nasal congestion, throat pain. Absent: difficulty swallowing, mouth swelling, ear pain, eye pain, visual Changes CARDIOVASCULAR: Absent: chest pain, loss of consciousness, palpitations, irregular heart rate, peripheral edema RESPIRATORY: Present: Cough Absent: shortness of breath, dyspnea with exertion, orthopnea, wheezing, stridor, hemoptysis GASTROINTESTINAL: Absent: abdominal pain, abdominal distension, nausea, vomiting, diarrhea, constipation, melena, hematochezia SKIN: Absent: rash, itching, pallor NEUROLOGIC: Present: headache Absent: focal weakness or paresthesias, dizziness, unsteady gait, seizure, mental status changes, bladder or bowel incontinence Is the patient limited Montenegrin proficient: No *Physical Exam - Vital Signs Last Vital Signs Temp Pulse Resp BP Pulse Ox 100.3 F H 120 H 16 124/79 100 02/05/19 19:20 02/05/19 19:20 02/05/19 19:20 02/05/19 19:20 02/05/19 19:20 - Physical Exam 02/05/19 22:20 GENERAL: The patient is awake, alert, and fully oriented, in no acute distress. HEAD: Normal with no signs of trauma. EYES: Pupils equal, round and reactive to light, extraocular movements intact, sclera anicteric, conjunctiva clear. HEENT: No nasal congestion or rhinorrhea. No sinus Tenderness. Mucous membranes are moist. (+) tonsillar erythema and edema. No exudate. Uvula is midline. No TM bulging, dullness or erythema EXTREMITIES: Normal range of motion, no edema. NEUROLOGICAL: Normal speech, normal gait. PSYCH: Normal mood, normal affect. SKIN: Warm, Dry, normal turgor, no rashes or lesions noted. Medical Decision Making - Medical Decision Making 02/05/19 22:21 Patient is a 23-year-old female with no past medical history who presents the ER with 1 day of sore throat and fever. She also admits to associated nauseousness, vomiting and headache. She states she is taken Tylenol and Motrin at home for her fevers however the fevers are tactile. Denies earache, difficulty breathing, cough and shortness of breath. A/P: Strep pharyngitis On exam the throat is erythematous and edematous without exudate. Uvula is midline Rapid strep is positive We will treat with amoxicillin. First dose given in the ER Discharge home with symptomatic relief and amoxicillin prescription. Patient to follow-up with her primary care doctor I discussed the physical exam findings, ancillary test results and final diagnoses with the patient. I answered all of the patient's questions. The patient was satisfied with the care received and felt comfortable with the discharge plan and treatment plan. The Patient agrees to follow up with the primary care physician/specialist within 24-72 hours. Return precautions were given. Discharge - Discharge Information Problems reviewed: Yes Clinical Impression/Diagnosis: Pharyngitis Qualifiers: Pharyngitis/tonsillitis etiology: streptococcus Qualified Code(s): J02.0 - Streptococcal pharyngitis Condition: Stable Disposition: HOME - Admission No - Follow up/Referral Referrals: Moisés Apodaca MD [Staff Physician] - - Patient Discharge Instructions Patient Printed Discharge Instructions: DI for Strep Throat Additional Instructions: You have strep throat. This is a bacterial infection. Please take the amoxicillin 500 mg twice a day for one week. Please finish the prescription even if you feel better. You may take Motrin 600 mg every 6 hours as needed for pain or fever. You may take Zofran every 8 hours as needed for nausea or vomiting. Warm water gargles and cough drops and just may also help her symptoms. Please throw way your toothbrush 3 days into treatment to prevent reinfection. Please follow up with your primary care doctor next week. Return to emergency department if you have worsening pain, difficulty swallowing , changes in your voice, lightheadedness, dizziness, or any changes in your symptoms. - Post Discharge Activity Work/Back to School Note: Back to Work
[2019-02-05] MEDS ORDERED: AMOXICILLIN ORAL SUSPENSION - 250 MG/5 ML PO ONE (22:11)
[2019-02-05] MEDS ORDERED: DEXAMETHASONE LIQUID 0.5 MG/5 ML PO ONE (22:11)
[2019-02-05] MEDS ORDERED: ACETAMINOPHEN 650 MG/20.3 ML ORAL SOLUTION (CUPS) PO ONE (22:11)
[2019-02-05] MEDS ORDERED: ONDANSETRON *ODT* 4 MG TABLET SL ONE (22:11)
[2019-02-05] MEDS ORDERED: ONDANSETRON *ODT* 4 MG TABLET ONE (22:14)
[2019-02-05] MEDS ORDERED: DEXAMETHASONE SOD PHOSPHATE 10 MG/1 ML VIAL ONE (22:14)
[2019-02-05] MEDS ORDERED: AMOXICILLIN ORAL SUSPENSION - 250 MG/5 ML ONE (22:23)
== END 2019-02-05 22:53 | disposition home or self-care (01) ==
LOC: JERFT 19:17
DX: J02.0 Streptococcal pharyngitis (principal); B95.0 Streptococcus, group A, as the cause of diseases classified elsewhere
CPT/HCPCS: 87804; 87880; 99282-25; Q0162

== ENCOUNTER 2019-03-30 10:17 | Emergency (ER) | payer OTHER ==
[2019-03-30 10:24] VITALS: BP 113/49; PULSE 78; TEMP 98; BMI 27.1
--- NOTE | 2019-03-30 11:05 | PDOC ---
History of Present Illness - General Chief Complaint: Vaginal Sxs Stated Complaint: PAIN Time Seen by Provider: 03/30/19 10:30 History Source: Patient Exam Limitations: No Limitations - History of Present Illness Initial Comments: 03/30/19 11:00 23-year-old female with history of hypothyroidism presents complaining of vaginal itching and white discharge since yesterday. Reports new male partner x1 month. Patient is having unprotected sex, currently on oral contraceptives. Denies history of . Denies recent use of antibiotics, foul odor, back pain, fever, dysuria, urinary frequency or urgency, abdominal pain, vaginal bleeding. LMP 2 weeks ago. ROS: GENERAL/CONSTITUTIONAL: No fever, chills, weakness, dizziness HEAD, EYES, EARS, NOSE AND THROAT: No changes in vision, No ear pain or discharge, No sore throat CARDIOVASCULAR: No chest pain RESPIRATORY: No shortness of breath or cough GASTROINTESTINAL: No pain, nausea, vomiting, diarrhea or constipation GENITOURINARY: Vaginal itching and white discharge, no dysuria MUSCULOSKELETAL: No neck or back pain SKIN: No rash NEUROLOGIC: No headache, vertigo, loss of consciousness, or loss of sensation PE: GENERAL: well-appearing, NAD HEAD: NCAT EYES: Pupils equal, round and reactive to light, sclera anicteric, conjunctiva clear ENT: pharynx: no erythema, no exudate, uvula midline NECK: supple CHEST: nontender RESP: clear, no w/r/r CARDIO: rrr, no m/g/r ABD: +BS, soft, nontender, non distended : White cottage cheeselike discharge noted, no CMT, os closed, no blood in the vault, no lesions noted, no adnexal tenderness to palpation BACK: no midline spinal ttp, no CVAT EXTREMITIES: Normal range of motion, no edema NEUROLOGICAL: Normal speech, normal gait SKIN: Warm, Dry Is this a multiple visit Asthma Patient?: No Past History - Past Medical History Allergies/Adverse Reactions: Allergies Allergy/AdvReac Type Severity Reaction Status Date / Time No Known Allergies Allergy Verified 03/30/19 10:22 Home Medications: Ambulatory Orders Levothyroxine [Synthroid -] 75 mcg PO DAILY 07/25/15 Anemia: No Asthma: No Cancer: No Cardiac Disorders: No CVA: No COPD: No DVT: No Dementia: No Diabetes: No Dialysis: No GI Disorders: No Disorders: No HTN: No Hypercholesterolemia: No Kidney Stones: No Liver Disease: No Psychiatric Problems: Yes (ANXIETY.) Seizures: No Thyroid Disease: Yes (HYPO.) Lung CA: No - Surgical History Abdominal Surgery: No Appendectomy: No Cardiac Surgery: No Cholecystectomy: No Gastric Stapling: No GI Surgery: No Lung Surgery: No Neurologic Surgery: No - Reproductive History Cervical CA: No Dysfunctional Uterine Bleeding: No Ectopic : No Endometrial CA: No Polycystic Ovaries: No Tubal Ligation: No - Immunization History Immunization Up to Date: Yes - Psycho Social/Smoking Cessation Hx Smoking Status: No Smoking History: Never smoked Have you smoked in the past 12 months: No Number of Cigarettes Smoked Daily: 0 Cigars Per Day: 0 Hx Alcohol Use: No Drug/Substance Use Hx: No Substance Use Type: None *Physical Exam - Vital Signs Last Vital Signs Temp Pulse Resp BP Pulse Ox 98 F 78 18 113/49 L 99 03/30/19 10:23 03/30/19 10:23 03/30/19 10:23 03/30/19 10:23 03/30/19 10:23 Medical Decision Making - Medical Decision Making 03/30/19 11:05 23-year-old female complaining of vaginal discharge and itching since yesterday. New male sexual partner x1 month. Reports unprotected sex, currently on oral contraceptives. UA Urine GC chlamydia Exam consistent with vaginal candidiasis Treat with p.o. Diflucan 03/30/19 12:20 UA results reviewed Negative test Diflucan 150 mg tablet x1 given today Will prescribe Diflucan 1 tab to take in 2 days if symptoms have not improved GC chlamydia pending Safe sex advised Follow-up with LEARNING SUPPORT SERVICES DIRECTOR within 1 week Discharge - Discharge Information Problems reviewed: Yes Clinical Impression/Diagnosis: Vaginal candidiasis Condition: Stable Disposition: HOME - Admission No - Follow up/Referral - Patient Discharge Instructions Additional Instructions: Take Diflucan 150 mg 1 tablet in 2 days if needed Follow-up with your beauty operator this week Safe sex advised Return to ED if pelvic pain, vaginal bleeding, nausea, vomiting, diarrhea or any other concerns - Post Discharge Activity
[2019-03-30 11:26] LABS: EPI CELLS 6.6 /HPF (0-5/HPF); HYALINE CASTS 9 /lpf (0-8); PH,URINE 5.5 (5.0-8.0); URINE APPEARANCE CLEAR; URINE BACTERIA 133.3 /hpf (NEGATIVE); URINE BILIRUBIN NEGATIVE (NEGATIVE); URINE COLOR DK YELLOW; URINE GLUCOSE (UA) NEGATIVE (NEGATIVE); URINE KETONE TRACE (NEGATIVE); URINE LEUK ESTERASE TRACE (NEGATIVE); URINE NITRITE NEGATIVE (NEGATIVE); URINE PROTEIN NEGATIVE (NEGATIVE); URINE UROBILINOGEN 0.2 mg/dL (0.2-1.0); URINE WBC 8 /hpf (0-5)
[2019-03-30] MEDS ORDERED: FLUCONAZOLE 150 MG TABLET PO ONE ×2 (11:50→12:17)
[2019-03-30 14:08] LABS: URINE RBC 4.4 /hpf (0-4)
== END 2019-03-30 12:31 | disposition home or self-care (01) ==
LOC: JERFT 10:17
DX: B37.3 Candidiasis of vulva and vagina (principal); E03.9 Hypothyroidism, unspecified; F41.9 Anxiety disorder, unspecified
CPT/HCPCS: 36415; 81003; 84703; 87491; 87591; 99283-25

== ENCOUNTER 2020-09-16 05:50 | Emergency (ER) | payer OTHER ==
[2020-09-16 06:43] VITALS: BP 95/72; PULSE 77; TEMP 98.6; BMI 26.4
[2020-09-16] MEDS ORDERED: AMOX TR/POT CLAV 875MG/125MG TABLETS (FP) PO ONE (07:23)
[2020-09-16] MEDS ORDERED: AMOX TR/POT CLAV 875MG/125MG TABLETS (FP) ONE (07:24)
== END 2020-09-16 08:20 | disposition home or self-care (01) ==
LOC: JER 05:50
DX: J02.9 Acute pharyngitis, unspecified (principal); R05 Cough; J01.90 Acute sinusitis, unspecified; Z11.52 Encounter for screening for COVID-19
CPT/HCPCS: 36415; 86308; 87804; 87880; 99283-25; C9803; U0003; U0005

== ENCOUNTER 2021-03-29 09:12 | Emergency (ER) | payer OTHER ==
[2021-03-29 09:23] VITALS: BP 113/64; PULSE 76; TEMP 98.1; BMI 27.3
[2021-03-29] MEDS ORDERED: MECLIZINE HCL 12.5 MG TABLET PO ONE (09:53)
[2021-03-29] MEDS ORDERED: MECLIZINE HCL 12.5 MG TABLET ONE (10:00)
== END 2021-03-29 11:24 | disposition home or self-care (01) ==
LOC: JERFT 09:12
DX: R42 Dizziness and giddiness (principal)
CPT/HCPCS: 93005; 93010; 99283-25

== ENCOUNTER 2021-10-19 17:21 | Emergency (ER) | payer OTHER ==
[2021-10-19 17:30] VITALS: BP 113/72; PULSE 87; RESP 18; TEMP 98.3; BMI 29.2
== END 2021-10-19 20:36 | disposition home or self-care (01) ==
LOC: JER 17:21 → JERFT 17:21
DX: G44.319 Acute post-traumatic headache, not intractable (principal)
CPT/HCPCS: 70450-TC; 72125-TC; 99284-25

== ENCOUNTER 2021-12-04 11:33 | Emergency (ER) | payer OTHER ==
[2021-12-04 11:52] VITALS: BP 127/72; PULSE 104; RESP 18; TEMP 98
[2021-12-04] MEDS ORDERED: IBUPROFEN 400 MG TABLET (FP) PO ONE ×2 (13:17→13:22)
== END 2021-12-04 14:18 | disposition home or self-care (01) ==
LOC: JERFT 11:33
DX: Z04.1 Encounter for examination and observation following transport accident (principal); V87.7XXA Person injured in collision between other specified motor vehicles (traffic), initial encounter; Y92.9 Unspecified place or not applicable
CPT/HCPCS: 84703; 99283-25

== ENCOUNTER 2022-06-27 16:05 | Emergency (ER) | payer OTHER ==
[2022-06-27] MEDS ORDERED: ACETAMINOPHEN 1000 MG/100 ML BAG IVPB ONE (16:53)
[2022-06-27] MEDS ORDERED: ACETAMINOPHEN INJECTION 100 ML IVPB ONE (16:57)
[2022-06-27] MEDS ORDERED: SODIUM CHLORIDE 0.9% 500 ML INFUS.BAG IV ONE ×2 (17:11→18:08)
[2022-06-27 17:37] LABS: HEMATOCRIT 41.9 % (32.4-45.2); HEMOGLOBIN 14.5 GM/dL (10.7-15.3); MCH 30.7 pg (25.7-33.7); MCHC 34.7 g/dl (32.0-36.0); MEAN CELL VOLUME 88.6 fl (80-96); MEAN PLT VOLUME 8.9 fl (7.5-11.1); PLATELET COUNT 227 10^3/uL (134-434); RBC 4.72 M/mm3 (3.60-5.2); RDW 13.2 % (11.6-15.6); WHITE BLOOD COUNT 20.2 K/mm3 (4.0-10.0)
[2022-06-27 17:41] LABS: VENOUS BASE EXCESS -1.6 mmol/L (-2-2); VENOUS O2 SATURATION 63.9 % (70-80); VENOUS PCO2 38.4 mmHg (38-52); VENOUS PH 7.394 (7.310-7.410)
[2022-06-27 17:42] LABS: POTASSIUM 3.9 mmol/L (3.5-5.1)
[2022-06-27 17:44] LABS: CALCIUM 8.8 mg/dL (8.5-10.1)
[2022-06-27 17:45] LABS: ALBUMIN 4.2 g/dl (3.4-5.0); BLOOD UREA NITROGEN 13.4 mg/dL (7-18); MAGNESIUM 1.9 mg/dL (1.8-2.4)
[2022-06-27 17:48] LABS: CREATININE 0.8 mg/dL (0.55-1.3); PHOSPHOROUS 2.8 mg/dL (2.5-4.9)
[2022-06-27 17:49] LABS: BILIRUBIN,TOTAL 1.1 mg/dL (0.2-1)
[2022-06-27] MEDS ORDERED: AMOXICILLIN 500 MG CAPSULE (FP) PO ONE (18:05)
[2022-06-27] MEDS ORDERED: PENICILLIN V POTASSIUM 500 MG TABLET PO ONE (18:10)
[2022-06-27] MEDS ORDERED: DEXAMETHASONE SOD PHOSPHATE 10 MG/1 ML VIAL IVPUSH ONE (18:24)
[2022-06-27] MEDS ORDERED: IBUPROFEN 600 MG TABLET (FP) PO ONE ×2 (18:24→18:48)
[2022-06-27] MEDS ORDERED: DEXAMETHASONE SOD PHOSPHATE 10 MG/1 ML VIAL ONE (18:48)
[2022-06-27 18:58] LABS: ANISOCYTOSIS 0; MACROCYTOSIS 0
[2022-06-27 20:09] VITALS: BP 110/72; RESP 18; TEMP 99
[2022-06-29 15:18] VITALS: PULSE 108
== END 2022-06-27 20:10 | disposition home or self-care (01) ==
LOC: JER 16:05
PROC: 3E033NZ Introduction of Analgesics, Hypnotics, Sedatives into Peripheral Vein, Percutaneous Approach (ICD-10-PCS; principal; 2022-06-27)
PROC: 3E033GC Introduction of Other Therapeutic Substance into Peripheral Vein, Percutaneous Approach (ICD-10-PCS; 2022-06-27)
DX: R50.9 Fever, unspecified (principal); R07.0 Pain in throat; R13.10 Dysphagia, unspecified; R53.1 Weakness; M79.10 Myalgia, unspecified site; R51.9 Headache, unspecified; J02.9 Acute pharyngitis, unspecified; R00.0 Tachycardia, unspecified; Z20.822 Contact with and (suspected) exposure to COVID-19
CPT/HCPCS: 0241U-QW; 36415; 80053; 82803; 83605; 83735; 84100; 84439; 84443; 84481; 84703; 85025; 87040; 87070; 93005; 93010; 99284-25; J1100

== ENCOUNTER 2022-06-30 10:55 | Emergency (ER) | payer OTHER ==
[2022-06-30 11:00] VITALS: BP 115/57; PULSE 81; RESP 18; TEMP 99.3; BMI 30.2
[2022-06-30] MEDS ORDERED: predniSONE 20 MG TABLET (UD) PO ONE (11:42)
[2022-06-30] MEDS ORDERED: ACETAMINOPHEN INJECTION 100 ML IVPB ONE (12:41)
[2022-06-30] MEDS ORDERED: FAMOTIDINE 20 MG/50 ML IVPB 20 MG/50 ML MG IVPB ONE (12:41)
[2022-06-30] MEDS ORDERED: predniSONE 20 MG TABLET (UD) ONE (12:46)
== END 2022-06-30 14:21 | disposition home or self-care (01) ==
LOC: JER 10:55
DX: R07.0 Pain in throat (principal); R13.10 Dysphagia, unspecified; J02.0 Streptococcal pharyngitis
CPT/HCPCS: 99283-25

== ENCOUNTER 2022-11-17 08:33 | Emergency (ER) | payer OTHER ==
[2022-11-17 08:39] VITALS: BP 126/82; PULSE 62; RESP 18; TEMP 98; BMI 30.2
[2022-11-17] MEDS ORDERED: predniSONE 20 MG TABLET (UD) PO ONE (09:02)
[2022-11-17] MEDS ORDERED: FAMOTIDINE 10 MG TABLET PO ONE (09:02)
[2022-11-17] MEDS ORDERED: diphenhydrAMINE HCL 25 MG CAPSULE (FP) PO ONE (09:03)
== END 2022-11-17 09:31 | disposition home or self-care (01) ==
LOC: JER 08:33
DX: L29.9 Pruritus, unspecified (principal); L50.0 Allergic urticaria
CPT/HCPCS: 99283-25

== ENCOUNTER 2023-04-19 08:54 | Emergency (ER) | payer OTHER ==
[2023-04-19 09:04] VITALS: BP 125/57; PULSE 69; RESP 16; TEMP 99.4; BMI 31.2
[2023-04-19 09:34] LABS: EPI CELLS >36 /uL (0-25.1); HYALINE CASTS 0 /uL (0-3.1); PH,URINE 6.5 (5.0-8.0); URINE APPEARANCE CLOUDY; URINE BACTERIA 677 /uL (0-1359); URINE BILIRUBIN NEGATIVE (NEGATIVE); URINE COLOR YELLOW; URINE GLUCOSE (UA) NEGATIVE (NEGATIVE); URINE KETONE NEGATIVE (NEGATIVE); URINE LEUK ESTERASE 1+ (NEGATIVE); URINE NITRITE NEGATIVE (NEGATIVE); URINE PROTEIN NEGATIVE (NEGATIVE); URINE RBC 25 /uL (0-23.9); URINE UROBILINOGEN 0.2 mg/dL (0.2-1.0); URINE WBC 34 /uL (0-25.8)
[2023-04-19 09:35] LABS: HCG,QUALITATIVE URINE Negative
[2023-04-19 10:15] LABS: BASO % 0.5 % (0-2.0); EOS % 2.2 % (0-4.5); HEMATOCRIT 42.8 % (32.4-45.2); HEMOGLOBIN 14.5 GM/dL (10.7-15.3); LYMPH % 31.2 % (8-40); MCH 31.2 pg (25.7-33.7); MEAN CELL VOLUME 91.9 fl (80-96); MEAN PLT VOLUME 8.7 fl (7.5-11.1); MONO % 5.4 % (3.8-10.2); NEUT % 60.7 % (42.8-82.8); PLATELET COUNT 241 10^3/uL (134-434); RBC 4.65 M/mm3 (3.60-5.2); RDW 13.2 % (11.6-15.6); WHITE BLOOD COUNT 8.9 K/mm3 (4.0-10.0)
[2023-04-19 10:25] LABS: CHLORIDE 109 mmol/L (98-107); POTASSIUM 3.9 mmol/L (3.5-5.1); SODIUM 138 mmol/L (136-145)
[2023-04-19 10:29] LABS: CALCIUM 8.7 mg/dL (8.5-10.1)
[2023-04-19 10:30] LABS: ALBUMIN 3.8 g/dl (3.4-5.0); ANION GAP 6 mmol/L (4-13); BLOOD UREA NITROGEN 14.6 mg/dL (7-18); CO2 23 mmol/L (21-32); GLUCOSE,RANDOM 98 mg/dL (74-106)
[2023-04-19 10:32] LABS: CREATININE 0.7 mg/dL (0.55-1.3)
[2023-04-19 10:33] LABS: SGOT/AST 14 U/L (15-37)
[2023-04-19 10:34] LABS: BILIRUBIN,TOTAL 1.3 mg/dL (0.2-1); TOT PROT 7.5 g/dl (6.4-8.2)
[2023-04-19 10:35] LABS: ALK PHOS 85 U/L (45-117)
[2023-04-19 10:37] LABS: SGPT/ALT 18 U/L (13-61)
[2023-04-19 11:53] LABS: YEAST NEGATIVE (NEGATIVE)
[2023-04-19] MEDS ORDERED: DOXYCYCLINE HYCLATE 100 MG CAPSULE PO ONE (12:29)
[2023-04-19] MEDS: DOXYCYCLINE HYCLATE 100 MG CAPSULE PO ONE (12:36)
[2023-04-19] MEDS ORDERED: ONDANSETRON 4 MG/2 ML VIAL ONE (12:38)
[2023-04-19] MEDS: ONDANSETRON 4 MG/2 ML VIAL IVPUSH ONE (12:50)
== END 2023-04-19 13:50 | disposition home or self-care (01) ==
LOC: JER 08:54
PROC: 3E03329 Introduction of Other Anti-infective into Peripheral Vein, Percutaneous Approach (ICD-10-PCS; principal; 2023-04-19)
PROC: 3E033GC Introduction of Other Therapeutic Substance into Peripheral Vein, Percutaneous Approach (ICD-10-PCS; 2023-04-19)
DX: R10.30 Lower abdominal pain, unspecified (principal); N72 Inflammatory disease of cervix uteri; N83.201 Unspecified ovarian cyst, right side
CPT/HCPCS: 36415; 76830-TC; 80053; 81003; 84702; 84703; 85025; 86780; 87070; 87077; 87086; 87205; 87491; 87591; 87661; 99284-25

== ENCOUNTER 2024-03-05 19:05 | Emergency (ER) | payer OTHER ==
[2024-03-05 19:09] VITALS: BP 122/82; PULSE 52; RESP 20; TEMP 99.5; BMI 30.8
[2024-03-05 19:42] LABS: URINE APPEARANCE CLEAR; URINE BILIRUBIN NEGATIVE (NEGATIVE); URINE COLOR YELLOW; URINE GLUCOSE (UA) NEGATIVE (NEGATIVE); URINE KETONE NEGATIVE (NEGATIVE); URINE LEUK ESTERASE NEGATIVE (NEGATIVE); URINE NITRITE NEGATIVE (NEGATIVE); URINE PROTEIN NEGATIVE (NEGATIVE); URINE UROBILINOGEN 0.2 mg/dL (0.2-1.0)
== END 2024-03-05 21:42 | disposition home or self-care (01) ==
LOC: JER 19:05
DX: O20.8 Other hemorrhage in early pregnancy (principal); Z3A.09 9 weeks gestation of pregnancy
CPT/HCPCS: 36415; 81003; 86850; 86900; 86901; 87086; 87491; 87591; 87661; 99283-25